=== PATIENT | male | born 2000 | race Caucasian/White ===

== ENCOUNTER 2020-04-19 16:58 | Emergency (ER) | payer MEDICAID ==
[~2020-04-19] VITALS: Ht 165.1 cm; Wt 72.7 kg
[~2020-04-19 16:58] MED LIST: COLACE 100100 MG/CAP PO; MOTRIN 600600 MG/TAB PO; PERCOCET 325 MG1 TA2 PO
[2020-04-19 17:23] VITALS: TEMP 99.8
[2020-04-19 17:43] LABS: BASO % 0.2 % (0.0-2.0); EOS # 0.1 (0.0-0.7); EOS % 0.9 % (0-4.0); GRAN # 2.7 (1.4-6.5); GRAN % 50.6 % (42.2-75.2); HEMATOCRIT 46.1 % (36.0-47.0); HEMOGLOBIN 15.6 g/dl (12.5-16.1); LYMPH % 37.9 % (20.0-51.0); MEAN CELL VOLUME 90 fl (80.0-95.0); MEAN CORPUSCULAR HEMOGLOBIN 30 pg (26.0-32.0); MEAN CORPUSCULAR HGB CONC 34 g/dl (33.0-37.0); MEAN PLATELET VOLUME 9.8 fl (7.4-10.4); MONO # 0.5 (0.1-0.6); MONO % 9.5 % (1.7-9.3); PLATELET COUNT 230 K/mm3 (130-400); RED BLOOD COUNT 5.14 M/mm3 (4.20-5.60); REDCELL DISTRIBUTION WIDTH-CV 11.7 % (11.5-14.5)
[2020-04-19 17:54] LABS: ALBUMIN 4.5 gm/dL (3.5-5.0); BILIRUBIN,TOTAL 0.7 mg/dL (0.0-1.0); CALCIUM 9.1 mg/dL (8.4-10.2); CREATININE, serum 1.06 (0.66-1.25); POTASSIUM 3.9 mmol/L (3.4-5.0)
[2020-04-19 18:27] VITALS: BP 148/89; PULSE 71
== END 2020-04-19 18:48 | disposition home or self-care (01) ==
LOC: COL.ER 16:58
PROVIDERS: Family Medicine
DX: U07.1 COVID-19 (principal)
CPT/HCPCS: J0696

== ENCOUNTER 2020-05-10 12:41 | Emergency (ER) | payer SELFPAY ==
[~2020-05-10] VITALS: Ht 165.1 cm; Wt 72.7 kg
[2020-05-10 12:45] VITALS: BP 147/88; TEMP 98.6
[2020-05-10 13:55] VITALS: PULSE 65
== END 2020-05-10 13:55 | disposition home or self-care (01) ==
LOC: COL.ER 12:58
DX: M79.10 Myalgia, unspecified site (principal); Z86.19 Personal history of other infectious and parasitic diseases; Z20.828 Contact with and (suspected) exposure to other viral communicable diseases

== ENCOUNTER → 2020-05-10 | Emergency (ER) | LOC: COL.ER 12:41 | DX: R06.9 Unspecified abnormalities of breathing (principal); Z20.828 Contact with and (suspected) exposure to other viral communicable diseases ==

== ENCOUNTER 2020-09-17 17:25 | Emergency (ER) | payer SELFPAY ==
[~2020-09-17] VITALS: Ht 165.1 cm; Wt 59.1 kg
[2020-09-17 17:46] VITALS: TEMP 97.7
[2020-09-17 19:05] LABS: BASO % 0.4 % (0.0-2.0); EOS # 0.2 (0.0-0.7); EOS % 2.6 % (0-4.0); GRAN # 4.1 (1.4-6.5); HEMOGLOBIN 16.6 g/dl (12.5-16.1); LYMPH # 2.6 (1.2-3.4); LYMPH % 34.8 % (20.0-51.0); MEAN CELL VOLUME 89 fl (80.0-95.0); MEAN CORPUSCULAR HEMOGLOBIN 31 pg (26.0-32.0); MEAN CORPUSCULAR HGB CONC 35 g/dl (33.0-37.0); MEAN PLATELET VOLUME 10.5 fl (7.4-10.4); MONO # 0.5 (0.1-0.6); MONO % 6.3 % (1.7-9.3); PLATELET COUNT 228 K/mm3 (130-400); RED BLOOD COUNT 5.39 M/mm3 (4.20-5.60)
[2020-09-17 19:17] LABS: ALBUMIN 4.7 gm/dL (3.5-5.0); BILIRUBIN,TOTAL 0.7 mg/dL (0.0-1.0); CALCIUM 9.2 mg/dL (8.4-10.2); CREATININE, serum 0.87 (0.66-1.25); POTASSIUM 4.2 mmol/L (3.4-5.0)
[2020-09-17 19:29] LABS: MUCOUS Present /lpf; PH 5 (5-8); SQUAMOUS EPITHELIAL 0-2 /hpf; URINE APPEARANCE Clear; URINE BACTERIA None Seen /hpf; URINE BILIRUBIN Negative (NEGATIVE); URINE BLOOD Negative (NEGATIVE); URINE COLOR Yellow; URINE GLUCOSE Negative (NEGATIVE); URINE KETONE Negative (NEGATIVE); URINE LEUKOCYTE ESTERASE Negative (NEGATIVE); URINE NITRATE Negative (NEGATIVE); URINE PROTEIN(semi-quant) Negative (NEGATIVE); URINE RBC 0-2 /hpf; URINE UROBILINOGEN Negative (NEGATIVE); URINE WBC 0-2 /hpf
[2020-09-17 19:29] LABS: TROPONIN-I 0.016 ng/mL (0.000-0.035)
[2020-09-17 19:38] LABS: TRICYCLIC ANTIDEPRESS URINE NEGATIVE
[2020-09-17] MEDS ORDERED: PREDNISONE20 MG PO (20:41)
[2020-09-17 20:58] VITALS: BP 127/63; PULSE 78
[2020-09-17 22:44] LABS: COLLECTION METHOD CLEAN CATCH
== END 2020-09-17 21:25 | disposition home or self-care (01) ==
LOC: COL.ER 17:25
PROVIDERS: Emergency Medicine
DX: U07.1 COVID-19 (principal); T78.02XA Anaphylactic reaction due to shellfish (crustaceans), initial encounter; R00.0 Tachycardia, unspecified
CPT/HCPCS: J0171; J1200; J2930; J7030; J7512

== ENCOUNTER 2020-12-10 12:34 | Emergency (ER) | payer SELFPAY ==
[~2020-12-10] VITALS: Ht 165.1 cm; Wt 68.2 kg
[~2020-12-10 12:34] MED LIST changes: +PREDNISONE20 MG PO
[2020-12-10 12:58] VITALS: BP 139/82; PULSE 85; TEMP 98.2
== END 2020-12-10 16:31 | disposition left against medical advice (07) ==
LOC: COL.ER 12:34
DX: J35.8 Other chronic diseases of tonsils and adenoids (principal)

== ENCOUNTER 2021-03-12 05:50 | Emergency (ER) | payer SELFPAY ==
[~2021-03-12] VITALS: Ht 165.1 cm; Wt 72.7 kg
[~2021-03-12 05:50] MED LIST changes: -DOXYCYCLINE 10100 MG PO
[2021-03-12 06:21] LABS: BASO % 0.5 % (0.0-2.0); EOS # 0.2 (0.0-0.7); EOS % 2.9 % (0-4.0); GRAN # 3.2 (1.4-6.5); GRAN % 49.8 % (42.2-75.2); HEMATOCRIT 46.2 % (36.0-47.0); HEMOGLOBIN 16.2 g/dl (12.5-16.1); LYMPH # 2.4 (1.2-3.4); LYMPH % 36.3 % (20.0-51.0); MEAN CELL VOLUME 88 fl (80.0-95.0); MEAN CORPUSCULAR HEMOGLOBIN 31 pg (26.0-32.0); MEAN CORPUSCULAR HGB CONC 35 g/dl (33.0-37.0); MEAN PLATELET VOLUME 10.2 fl (7.4-10.4); MONO # 0.7 (0.1-0.6); MONO % 10.2 % (1.7-9.3); PLATELET COUNT 243 K/mm3 (130-400); RED BLOOD COUNT 5.24 M/mm3 (4.20-5.60); REDCELL DISTRIBUTION WIDTH-CV 11.9 % (11.5-14.5)
[2021-03-12 06:31] LABS: ALBUMIN 4.5 gm/dL (3.5-5.0); BILIRUBIN,TOTAL 1.1 mg/dL (0.0-1.0); CALCIUM 9.7 mg/dL (8.4-10.2); CREATININE, serum 0.71 (0.66-1.25); POTASSIUM 4.3 mmol/L (3.4-5.0)
[2021-03-12 07:28] VITALS: BP 124/75; PULSE 62; TEMP 97.6
== END 2021-03-12 07:28 | disposition home or self-care (01) ==
LOC: COL.ER 05:50
PROVIDERS: Emergency Medicine
DX: R42 Dizziness and giddiness (principal); R11.0 Nausea; Z90.49 Acquired absence of other specified parts of digestive tract
CPT/HCPCS: J7030

== ENCOUNTER → 2021-03-12 | Emergency (ER) | payer SELFPAY ==
[~2021-03-12] MED LIST changes: +DOXYCYCLINE 10100 MG PO
== END ==
LOC: COL.ER 16:45
DX: Z00.00 Encounter for general adult medical examination without abnormal findings (principal)

== ENCOUNTER 2021-05-05 15:48 | Emergency (ER) | payer SELFPAY ==
[~2021-05-05] VITALS: Ht 165.1 cm; Wt 72.7 kg
[2021-05-05 15:54] VITALS: BP 148/81; PULSE 80; TEMP 98.1
== END 2021-05-05 18:25 | disposition left against medical advice (07) ==
LOC: COL.ER 15:48
DX: R21 Rash and other nonspecific skin eruption (principal)

== ENCOUNTER 2021-09-10 15:30 | Emergency (ER) | payer SELFPAY ==
[~2021-09-10] VITALS: Ht 167.6 cm; Wt 76.4 kg
[2021-09-10 15:54] VITALS: BP 168/82; PULSE 76; TEMP 98.7
[2021-09-10 16:27] LABS: COLLECTION METHOD CLEAN CATCH
[2021-09-10 16:40] LABS: PH 7 (5-8); SQUAMOUS EPITHELIAL 0-2 /hpf (0-10); URINE APPEARANCE Clear (CLEAR/HAZY); URINE BACTERIA None Seen (NONE SEEN); URINE BILIRUBIN Negative (NEGATIVE); URINE BLOOD Negative (NEGATIVE); URINE COLOR Yellow (YELLOW); URINE GLUCOSE Negative (NEGATIVE); URINE KETONE Negative (NEGATIVE); URINE LEUKOCYTE ESTERASE Negative (NEGATIVE); URINE NITRATE Negative (NEGATIVE); URINE PROTEIN(semi-quant) Negative (NEGATIVE); URINE RBC 0-2 /hpf (0-2)
[2021-09-10] MEDS ORDERED: DOXYCYCLINE 10100 MG PO (18:49)
== END 2021-09-10 18:54 | disposition home or self-care (01) ==
LOC: COL.ER 15:30
PROVIDERS: Emergency Medicine
DX: N50.811 Right testicular pain (principal); R11.0 Nausea

== ENCOUNTER 2022-01-15 22:42 | Emergency (ER) | payer SELFPAY ==
[~2022-01-15] VITALS: Ht 165.1 cm; Wt 72.7 kg
[~2022-01-15 22:42] MED LIST changes: +DOXYCYCLINE 10100 MG PO
[2022-01-15 23:19] LABS: BASO % 0.2 % (0.0-2.0); EOS # 0.1 K/mm3 (0.0-0.7); EOS % 1.1 % (0.0-4.0); GRAN # 9.3 K/mm3 (1.4-6.5); GRAN % 85.3 % (42.2-75.2); HEMATOCRIT 47.7 % (42.0-52.0); HEMOGLOBIN 16.7 g/dl (13.5-18.0); LYMPH # 0.7 K/mm3 (1.2-3.4); LYMPH % 6.3 % (20.0-51.0); MEAN CELL VOLUME 89 fl (80.0-100.0); MEAN CORPUSCULAR HEMOGLOBIN 31 pg (27-31); MEAN CORPUSCULAR HGB CONC 35 g/dl (33.0-37.0); MEAN PLATELET VOLUME 10.3 fl (7.4-10.4); MONO # 0.7 K/mm3 (0.1-0.6); MONO % 6.7 % (1.7-9.3); PLATELET COUNT 204 K/mm3 (130-400); RED BLOOD COUNT 5.36 M/mm3 (4.20-5.60); REDCELL DISTRIBUTION WIDTH-CV 11.7 % (11.5-14.5)
[2022-01-15 23:36] LABS: ALBUMIN 4.6 gm/dL (3.5-5.0); BILIRUBIN,TOTAL 1.1 mg/dL (0.2-1.2); CALCIUM 9.5 mg/dL (8.4-10.2); CREATININE, serum 0.9 mg/dL (0.72-1.25); POTASSIUM 4.1 mmol/L (3.5-4.5); TOTAL PROTEIN 8.1 gm/dL (6.2-8.1)
[2022-01-16] MEDS ORDERED: ZOFRAN ODT4 MG PO (01:08)
[2022-01-16 01:20] VITALS: BP 150/91; PULSE 74; TEMP 98.3
== END 2022-01-16 01:20 | disposition home or self-care (01) ==
LOC: COL.ER 22:42
PROVIDERS: Physician Assistant
DX: B34.9 Viral infection, unspecified (principal)
CPT/HCPCS: J1885; J2405; J7030

== ENCOUNTER 2024-05-25 03:11 | Emergency (ER) | payer SELFPAY ==
[~2024-05-25] VITALS: Ht 165.1 cm; Wt 77.3 kg
[~2024-05-25 03:11] MED LIST changes: +FLEXERIL 1010 MG/TAB PO; +MYCOGEN CR 15GM TP; +ZOFRAN ODT4 MG PO
[2024-05-25 03:32] VITALS: TEMP 98.5
[2024-05-25] MEDS ORDERED: diphenhydrAMINE 50 MG/ML 1 ML VIAL IM ONE (03:45)
[2024-05-25 06:35] VITALS: BP 133/75; PULSE 48
== END 2024-05-25 06:35 | disposition home or self-care (01) ==
LOC: COL.ER 03:11
DX: R51.9 Headache, unspecified (principal)
CPT/HCPCS: J1200; J2765